=== PATIENT | female | born 1960 | race Caucasian/White ===

== ENCOUNTER 2019-04-04 11:17 | Emergency (ER) | payer SELFPAY ==
[2019-04-04 11:23] VITALS: RESP 18; TEMP 98.5
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
[2019-04-04 14:24] VITALS: BP 208/120; PULSE 73
[2019-04-04] MEDS ORDERED: ATENOLOL 50 MG TAB PO STA (14:24)
[2019-04-04 14:44] LABS: Amphetamine Screen,Urine Not Detected (NotDetected); Barbiturate Screen,Urine Not Detected (NotDetected); Benzodiazepines Screen,Urine Not Detected (NotDetected); Cocaine Screen,Urine Not Detected (NotDetected); Methadone Screen, Urine Not Detected (NotDetected); Opiate Screen,Urine Not Detected (NotDetected); Oxycodone Screen, Urine Not Detected (NotDetected); Phencyclidine Screen,Urine Not Detected (NotDetected); Tricyclic Antidepressant,Urine Not Detected (NotDetected); Urn Cannabinoid Scrn Not Detected (NotDetected)
[2019-04-04] MEDS ORDERED: LORazepam 1 MG TAB PO STA (16:07)
== END 2019-04-04 18:00 | disposition left against medical advice (07) ==
LOC: EC 11:17
DX: F41.9 Anxiety disorder, unspecified (principal); I10 Essential (primary) hypertension; F17.200 Nicotine dependence, unspecified, uncomplicated; Z53.29 Procedure and treatment not carried out because of patient's decision for other reasons; Z79.82 Long term (current) use of aspirin; Z79.899 Other long term (current) drug therapy; Z91.018 Allergy to other foods
CPT/HCPCS: 80306; 82075; 99284